=== PATIENT | female | born 1955 | race Caucasian/White ===

== ENCOUNTER 2021-03-12 11:58 | Inpatient (IN) | payer MEDICARE ==
[2021-03-12 12:47] LABS: #Basophils 0.1 thou/uL (0.0-0.2); #Lymphocytes 0.7 thou/uL (1.20-3.40); #Monocytes 0.6 thou/uL (0.11-0.59); #Neutrophils 6.8 thou/uL (1.40-6.50); %Basophils 0.7 % (0.0-1.0); %Eosinophils 0.6 % (0.0-10.0); %Monocytes 7.1 % (0.0-10.0); %Neutrophils 82.7 % (42.0-75.0); Hemoglobin 10.9 g/dL (12.0-16.0); Mean Corpuscular HGB CONC 32.2 g/dL (32.0-36.0); Mean Corpuscular Hemoglobin 25.8 pg (27.0-31.0); Mean Corpuscular Volume 80.3 fL (78.0-98.0); Mean Platelet Volume 8.5 fL (7.4-10.4); Platelet Count 278 thou/uL (130-400); Red Blood Cell (RBC) Count 4.23 mill/uL (4.20-5.40); White Blood Cell (WBC) Count 8.2 thou/uL (4.8-10.8)
[2021-03-12 13:09] LABS: ALT (SGPT) 41 U/L (8-55); AST (SGOT) 27 U/L (5-34); Albumin 4.1 g/dL (3.4-4.8); Alkaline Phosphatase 62 U/L (40-110); Anion Gap 17 mmol/L (10-20); BUN (Urea Nitrogen) 10 mg/dL (9.8-20.1); Bilirubin, Total 0.3 mg/dL (0.2-1.2); CK (CPK) 663 U/L (29-168); Calc. Creatinine Clearance 0 mL/min (70-130); Calcium 9.6 mg/dL (7.8-10.44); Carbon Dioxide 21 mmol/L (23-31); Chloride 101 mmol/L (98-107); Globulin 3.2 g/dL (2.4-3.5); Glucose 269 mg/dL (80-115); Protein, Total 7.3 g/dL (5.8-8.1); Sodium 135 mmol/L (136-145)
[2021-03-12 13:29] LABS: CKMB 3.7 ng/mL (0-6.6)
[2021-03-12] MEDS ORDERED: Aspirin Chewable 81 MG TAB ONE (14:24)
[2021-03-12 17:34] LABS: Troponin I 0.227 ng/mL (< 0.028)
[2021-03-12] MEDS ORDERED: Calcium Carbonate 500 MG ChewTAB PO PRN (18:55)
[2021-03-12] MEDS ORDERED: Ondansetron PF 4 MG/2 ML Vial IVP PRN (18:55)
[2021-03-12] MEDS ORDERED: Acetaminophen 650 MG Suppository PR PRN (18:55)
[2021-03-12] MEDS ORDERED: Ondansetron ODT 4 MG TAB PO PRN (18:55)
[2021-03-12] MEDS ORDERED: Dextrose 50% Abboject 50 ML SYRINGE SLOW IVP PRN (18:59)
[2021-03-12] MEDS ORDERED: Dextrose 5% in Water 1,000 ML IV PRN (18:59)
[2021-03-12] MEDS ORDERED: Acetaminophen 325 MG TAB ONE (19:16)
[2021-03-12 19:52] LABS: Bilirubin Negative (Negative); Blood, Urine Negative (Negative); Clarity Clear (Clear); Glucose, Urine (Dipstick) Greater than 1000 mg/dL (Negative); Ketone, Urine 20 mg/dL (Negative); Leukocyte Negative Leu/uL (Negative); Nitrite Negative (Negative); Protein, Urine (Dipstick) Negative (Neg-Trace); Specific Gravity, Urine 1.013 (1.002-1.036); Urobilinogen Normal mg/dL (Less than 2)
[2021-03-12 20:33] LABS: Troponin I 0.205 ng/mL (< 0.028)
[2021-03-12] MEDS: Lactated Ringer's 1,000 ML IV SCH (22:26)
[2021-03-13 00:54] VITALS: BMI 32.1
[2021-03-13 03:37] LABS: SARS-CoV-2 PCR by NAA Not Detected (NotDetected)
[2021-03-13 05:33] LABS: #Basophils 0.1 thou/uL (0.0-0.2); #Eosinphils 0.1 thou/uL (0.0-0.7); #Lymphocytes 1.2 thou/uL (1.20-3.40); #Monocytes 0.8 thou/uL (0.11-0.59); #Neutrophils 3.8 thou/uL (1.40-6.50); %Basophils 0.9 % (0.0-1.0); %Eosinophils 1.6 % (0.0-10.0); %Lymphocytes 20.2 % (21.0-51.0); %Monocytes 13.6 % (0.0-10.0); %Neutrophils 63.7 % (42.0-75.0); Hemoglobin 11.1 g/dL (12.0-16.0); Mean Corpuscular HGB CONC 31.2 g/dL (32.0-36.0); Mean Corpuscular Hemoglobin 25.3 pg (27.0-31.0); Mean Corpuscular Volume 81.1 fL (78.0-98.0); Mean Platelet Volume 8.7 fL (7.4-10.4); Platelet Count 265 thou/uL (130-400); RBC Distribution Width 15.2 % (11.5-14.5)
[2021-03-13 05:40] LABS: Hemoglobin A1c 8.8 % (4.0-6.0)
[2021-03-13 05:57] LABS: Anion Gap 13 mmol/L (10-20); BUN (Urea Nitrogen) 9 mg/dL (9.8-20.1); Calc. Creatinine Clearance 101 mL/min (70-130); Calcium 9.2 mg/dL (7.8-10.44); Carbon Dioxide 24 mmol/L (23-31); Cardiac Risk 5.9 (Less than 4.5); Chloride 103 mmol/L (98-107); Cholesterol 194 mg/dl (< 200 Desired); Glucose 241 mg/dL (80-115); HDL Cholesterol 33 mg/dL (>60 Neg Risk); LDL Cholesterol, Calculated 121 mg/dL; Potassium 4.5 mmol/L (3.5-5.1); Sodium 135 mmol/L (136-145); Triglycerides 200 mg/dL (Less than 150)
[2021-03-13] MEDS: Levothyroxine Sodium 100 MCG TAB PO SCH (06:04)
[2021-03-13] MEDS: Acetaminophen 325 MG TAB PO PRN (06:04)
[2021-03-13] MEDS: Lactated Ringer's 1,000 ML IV SCH ×4 (06:05→23:03)
[2021-03-13] MEDS: HumaLOG 300 UNITS/3 ML VIAL SC PRN ×4 (06:06→21:33)
[2021-03-13] MEDS ORDERED: Regadenoson 0.4 MG/5 ML SYRINGE ONE (08:46)
[2021-03-13] MEDS: metFORMIN 500 MG TAB PO SCH ×2 (08:54→15:52)
[2021-03-13] MEDS: Enoxaparin Sodium 40 MG/0.4 ML SYRINGE SC SCH (08:55)
[2021-03-13] MEDS: Ketoconazole 2% Cream 15 gm Tube TOP SCH (08:55)
[2021-03-13] MEDS: FLUoxetine HCl 10 MG CAP PO SCH (08:55)
[2021-03-13] MEDS: OLANZapine 5 MG TAB PO SCH (08:56)
[2021-03-13] MEDS ORDERED: metFORMIN XR 500 MG TAB PO SCH (09:00)
[2021-03-13 10:36] LABS: Iron 32 ug/dL (50-170); Iron Binding Capacity, Total 359 mcg/dL (265-497)
[2021-03-13 11:25] LABS: Troponin I 0.094 ng/mL (< 0.028)
[2021-03-13] MEDS: Ferrous Sulfate 325 MG TAB PO SCH (12:36)
[2021-03-13] MEDS: Rosuvastatin 20 MG TAB PO SCH (21:34)
[2021-03-14 05:47] LABS: #Eosinphils 0.2 thou/uL (0.0-0.7); #Lymphocytes 1.3 thou/uL (1.20-3.40); #Monocytes 0.6 thou/uL (0.11-0.59); #Neutrophils 3.2 thou/uL (1.40-6.50); %Basophils 0.4 % (0.0-1.0); %Eosinophils 2.9 % (0.0-10.0); %Monocytes 11.9 % (0.0-10.0); %Neutrophils 60.8 % (42.0-75.0); Hemoglobin 10.6 g/dL (12.0-16.0); Mean Corpuscular HGB CONC 30.9 g/dL (32.0-36.0); Mean Corpuscular Hemoglobin 25.2 pg (27.0-31.0); Mean Corpuscular Volume 81.6 fL (78.0-98.0); Mean Platelet Volume 8.5 fL (7.4-10.4); Platelet Count 259 thou/uL (130-400); RBC Distribution Width 15.1 % (11.5-14.5); Red Blood Cell (RBC) Count 4.21 mill/uL (4.20-5.40); White Blood Cell (WBC) Count 5.3 thou/uL (4.8-10.8)
[2021-03-14] MEDS: Levothyroxine Sodium 100 MCG TAB PO SCH (05:50)
[2021-03-14] MEDS: Lactated Ringer's 1,000 ML IV SCH ×3 (05:51→20:29)
[2021-03-14] MEDS: HumaLOG 300 UNITS/3 ML VIAL SC PRN ×4 (05:52→20:29)
[2021-03-14 06:12] LABS: Anion Gap 12 mmol/L (10-20); BUN (Urea Nitrogen) 5 mg/dL (9.8-20.1); CK (CPK) 514 U/L (29-168); Calc. Creatinine Clearance 101 mL/min (70-130); Calcium 9.1 mg/dL (7.8-10.44); Carbon Dioxide 23 mmol/L (23-31); Chloride 103 mmol/L (98-107); Glucose 209 mg/dL (80-115); Potassium 4.4 mmol/L (3.5-5.1); Sodium 134 mmol/L (136-145)
[2021-03-14] MEDS: Enoxaparin Sodium 40 MG/0.4 ML SYRINGE SC SCH (08:40)
[2021-03-14] MEDS: Ferrous Sulfate 325 MG TAB PO SCH (08:41)
[2021-03-14] MEDS: metFORMIN 500 MG TAB PO SCH ×2 (08:41→17:53)
[2021-03-14] MEDS: Ketoconazole 2% Cream 15 gm Tube TOP SCH (08:41)
[2021-03-14] MEDS: OLANZapine 5 MG TAB PO SCH (08:42)
[2021-03-14] MEDS: FLUoxetine HCl 10 MG CAP PO SCH (08:42)
[2021-03-14] MEDS ORDERED: hydrALAZINE 20 MG/ML VIAL SLOW IVP PRN (20:27)
[2021-03-14] MEDS: Acetaminophen 325 MG TAB PO PRN (20:31)
[2021-03-14] MEDS: Rosuvastatin 20 MG TAB PO SCH (20:32)
[2021-03-15] MEDS: Loratadine 10 MG TAB PO PRN (03:32)
[2021-03-15 05:29] LABS: #Eosinphils 0.1 thou/uL (0.0-0.7); #Lymphocytes 1.3 thou/uL (1.20-3.40); #Monocytes 0.6 thou/uL (0.11-0.59); #Neutrophils 3.6 thou/uL (1.40-6.50); %Basophils 0.3 % (0.0-1.0); %Eosinophils 1.3 % (0.0-10.0); %Lymphocytes 23.5 % (21.0-51.0); %Monocytes 11.3 % (0.0-10.0); %Neutrophils 63.6 % (42.0-75.0); Hemoglobin 11.2 g/dL (12.0-16.0); Mean Corpuscular HGB CONC 30.6 g/dL (32.0-36.0); Mean Corpuscular Hemoglobin 24.8 pg (27.0-31.0); Mean Corpuscular Volume 80.9 fL (78.0-98.0); Mean Platelet Volume 8.5 fL (7.4-10.4); Platelet Count 277 thou/uL (130-400); White Blood Cell (WBC) Count 5.6 thou/uL (4.8-10.8)
[2021-03-15 06:01] LABS: Anion Gap 14 mmol/L (10-20); BUN (Urea Nitrogen) 5 mg/dL (9.8-20.1); Calc. Creatinine Clearance 93 mL/min (70-130); Calcium 9.2 mg/dL (7.8-10.44); Carbon Dioxide 24 mmol/L (23-31); Chloride 100 mmol/L (98-107); Glucose 206 mg/dL (80-115); Potassium 4.1 mmol/L (3.5-5.1); Sodium 134 mmol/L (136-145)
[2021-03-15] MEDS: Levothyroxine Sodium 100 MCG TAB PO SCH (06:04)
[2021-03-15] MEDS: HumaLOG 300 UNITS/3 ML VIAL SC PRN ×4 (06:05→20:31)
[2021-03-15] MEDS: Enoxaparin Sodium 40 MG/0.4 ML SYRINGE SC SCH (10:22)
[2021-03-15] MEDS: metFORMIN 500 MG TAB PO SCH ×2 (10:23→18:17)
[2021-03-15] MEDS: OLANZapine 5 MG TAB PO SCH (10:24)
[2021-03-15] MEDS: FLUoxetine HCl 10 MG CAP PO SCH (10:24)
[2021-03-15] MEDS: Lisinopril 10 MG TAB PO SCH (10:24)
[2021-03-15] MEDS: Ferrous Sulfate 325 MG TAB PO SCH (10:26)
[2021-03-15] MEDS: Ketoconazole 2% Cream 15 gm Tube TOP SCH (10:26)
[2021-03-15] MEDS: Rosuvastatin 20 MG TAB PO SCH (20:30)
[2021-03-16] MEDS: Loratadine 10 MG TAB PO PRN ×2 (00:35→20:49)
[2021-03-16] MEDS: Melatonin 3 MG TAB PO PRN ×2 (00:35→20:49)
[2021-03-16 04:59] LABS: #Basophils 0.1 thou/uL (0.0-0.2); #Eosinphils 0.4 thou/uL (0.0-0.7); #Lymphocytes 2.3 thou/uL (1.20-3.40); #Monocytes 0.7 thou/uL (0.11-0.59); #Neutrophils 3.9 thou/uL (1.40-6.50); %Basophils 0.9 % (0.0-1.0); %Eosinophils 5.5 % (0.0-10.0); %Lymphocytes 31.4 % (21.0-51.0); %Neutrophils 52.3 % (42.0-75.0); Hemoglobin 10.7 g/dL (12.0-16.0); Mean Corpuscular HGB CONC 31.2 g/dL (32.0-36.0); Mean Corpuscular Hemoglobin 25.9 pg (27.0-31.0); Mean Corpuscular Volume 83.2 fL (78.0-98.0); Mean Platelet Volume 8.4 fL (7.4-10.4); Platelet Count 287 thou/uL (130-400); RBC Distribution Width 15.2 % (11.5-14.5); Red Blood Cell (RBC) Count 4.13 mill/uL (4.20-5.40); White Blood Cell (WBC) Count 7.5 thou/uL (4.8-10.8)
[2021-03-16 05:19] LABS: Anion Gap 16 mmol/L (10-20); BUN (Urea Nitrogen) 7 mg/dL (9.8-20.1); Calc. Creatinine Clearance 105 mL/min (70-130); Calcium 8.6 mg/dL (7.8-10.44); Carbon Dioxide 22 mmol/L (23-31); Chloride 100 mmol/L (98-107); Glucose 170 mg/dL (80-115); Potassium 4.1 mmol/L (3.5-5.1); Sodium 134 mmol/L (136-145)
[2021-03-16] MEDS: Levothyroxine Sodium 100 MCG TAB PO SCH (06:31)
[2021-03-16] MEDS: HumaLOG 300 UNITS/3 ML VIAL SC PRN ×3 (06:31→17:57)
[2021-03-16] MEDS: Enoxaparin Sodium 40 MG/0.4 ML SYRINGE SC SCH (08:22)
[2021-03-16] MEDS: FLUoxetine HCl 10 MG CAP PO SCH (08:23)
[2021-03-16] MEDS: OLANZapine 5 MG TAB PO SCH (08:23)
[2021-03-16] MEDS: metFORMIN 500 MG TAB PO SCH ×2 (08:23→17:57)
[2021-03-16] MEDS: Lisinopril 10 MG TAB PO SCH (08:24)
[2021-03-16] MEDS: Ketoconazole 2% Cream 15 gm Tube TOP SCH (08:28)
[2021-03-16] MEDS: Ferrous Sulfate 325 MG TAB PO SCH (08:29)
[2021-03-16] MEDS: Rosuvastatin 20 MG TAB PO SCH (20:49)
[2021-03-17] MEDS: Levothyroxine Sodium 100 MCG TAB PO SCH (05:25)
[2021-03-17] MEDS: Enoxaparin Sodium 40 MG/0.4 ML SYRINGE SC SCH (10:25)
[2021-03-17] MEDS: Ketoconazole 2% Cream 15 gm Tube TOP SCH (10:25)
[2021-03-17] MEDS: Lisinopril 10 MG TAB PO SCH (10:26)
[2021-03-17] MEDS: OLANZapine 5 MG TAB PO SCH (10:26)
[2021-03-17] MEDS: metFORMIN 500 MG TAB PO SCH ×2 (10:26→17:41)
[2021-03-17] MEDS: FLUoxetine HCl 10 MG CAP PO SCH (10:26)
[2021-03-17] MEDS: Ferrous Sulfate 325 MG TAB PO SCH (10:28)
[2021-03-17] MEDS: HumaLOG 300 UNITS/3 ML VIAL SC PRN ×2 (12:00→17:42)
[2021-03-17] MEDS: Rosuvastatin 20 MG TAB PO SCH (20:03)
[2021-03-17] MEDS: Melatonin 3 MG TAB PO PRN (20:03)
[2021-03-17] MEDS: Loratadine 10 MG TAB PO PRN (20:04)
[2021-03-18] MEDS: Levothyroxine Sodium 100 MCG TAB PO SCH (05:41)
[2021-03-18] MEDS: HumaLOG 300 UNITS/3 ML VIAL SC PRN ×2 (05:41→11:17)
[2021-03-18] MEDS: metFORMIN 500 MG TAB PO SCH ×2 (08:37→16:19)
[2021-03-18] MEDS: Ferrous Sulfate 325 MG TAB PO SCH (08:37)
[2021-03-18] MEDS: FLUoxetine HCl 10 MG CAP PO SCH (08:38)
[2021-03-18] MEDS: Lisinopril 10 MG TAB PO SCH (08:38)
[2021-03-18] MEDS: OLANZapine 5 MG TAB PO SCH (08:38)
[2021-03-18] MEDS: Enoxaparin Sodium 40 MG/0.4 ML SYRINGE SC SCH (08:38)
[2021-03-18] MEDS: Acetaminophen 325 MG TAB PO PRN ×2 (08:39→16:19)
[2021-03-18] MEDS: Ketoconazole 2% Cream 15 gm Tube TOP SCH (08:40)
[2021-03-18 15:31] VITALS: BP 120/57; TEMP 97.4
== END 2021-03-18 17:06 | DRG 557 ==
LOC: ERS 11:58 → 2SE 19:01 → OBSVTOIN 03-13 15:21
PROVIDERS: ADMIT Student in an Organized Health Care Education/Training Program; ATTEND Student in an Organized Health Care Education/Training Program
DX: M62.82 Rhabdomyolysis (principal); I21.A1 Myocardial infarction type 2; Z20.822 Contact with and (suspected) exposure to COVID-19; F31.9 Bipolar disorder, unspecified; I10 Essential (primary) hypertension; E11.9 Type 2 diabetes mellitus without complications; G89.4 Chronic pain syndrome; R53.82 Chronic fatigue, unspecified; E03.9 Hypothyroidism, unspecified; D64.9 Anemia, unspecified; F41.9 Anxiety disorder, unspecified; G47.00 Insomnia, unspecified; G43.909 Migraine, unspecified, not intractable, without status migrainosus; E78.5 Hyperlipidemia, unspecified; E28.2 Polycystic ovarian syndrome; Z88.0 Allergy status to penicillin; Z90.710 Acquired absence of both cervix and uterus; Z91.018 Allergy to other foods; Z91.048 Other nonmedicinal substance allergy status; Z79.890 Hormone replacement therapy; Z88.5 Allergy status to narcotic agent; Z88.8 Allergy status to other drugs, medicaments and biological substances; Z88.1 Allergy status to other antibiotic agents
CPT/HCPCS: 36415; 36416; 70450; 71046; 78452; 80048; 80053; 80061; 80164; 81003; 82550; 82553; 82728; 83036; 83540; 83550; 83880; 84439; 84443; 84484; 85025; 87635; 93005; 93017; 93306; 96372; A9500; G0378; J0360; J1650; J1815; J2785; U0003; U0005

== ENCOUNTER 2021-11-05 15:37 | Inpatient (IN) | payer MEDICARE ==
[2021-11-05 16:18] LABS: #Eosinphils 0.2 thou/uL (0.0-0.7); #Lymphocytes 1.8 thou/uL (1.20-3.40); #Monocytes 0.4 thou/uL (0.11-0.59); #Neutrophils 3.5 thou/uL (1.40-6.50); %Basophils 0.8 % (0.0-1.0); %Eosinophils 3.7 % (0.0-10.0); %Lymphocytes 29.3 % (21.0-51.0); %Monocytes 7.4 % (0.0-10.0); %Neutrophils 58.8 % (42.0-75.0); Hemoglobin 11.5 g/dL (12.0-16.0); Mean Corpuscular HGB CONC 32.5 g/dL (32.0-36.0); Mean Corpuscular Hemoglobin 27.1 pg (27.0-31.0); Mean Corpuscular Volume 83.5 fL (78.0-98.0); Mean Platelet Volume 8.7 fL (7.4-10.4); Platelet Count 257 thou/uL (130-400); RBC Distribution Width 17.3 % (11.5-14.5); Red Blood Cell (RBC) Count 4.22 mill/uL (4.20-5.40)
[2021-11-05 16:38] LABS: ALT (SGPT) 32 U/L (8-55); AST (SGOT) 22 U/L (5-34); Acetaminophen Less than 6.0 mcg/mL (10.0-30.0); Albumin 3.9 g/dL (3.4-4.8); Alcohol Less than 10 mg/dL (Less than 10); Alkaline Phosphatase 61 U/L (40-110); Anion Gap 20 mmol/L (10-20); BUN (Urea Nitrogen) 12 mg/dL (9.8-20.1); Bilirubin, Total 0.2 mg/dL (0.2-1.2); CK (CPK) 88 U/L (29-168); Calc. Creatinine Clearance 0 mL/min (70-130); Calcium 9.3 mg/dL (7.8-10.44); Carbon Dioxide 21 mmol/L (23-31); Chloride 98 mmol/L (98-107); Globulin 2.9 g/dL (2.4-3.5); Glucose 239 mg/dL (80-115); Lipase 46 U/L (8-78); Magnesium 1.7 mg/dL (1.6-2.6); Potassium 4.9 mmol/L (3.5-5.1); Protein, Total 6.8 g/dL (5.8-8.1); Salicylate Less than 8.0 mg/dL (15.0-30.0); Sodium 134 mmol/L (136-145)
[2021-11-05 16:52] LABS: Actual Bicarbonate (HCO3v) 21 mEq/L (22-28); Analyzer IN Cardio ER; Calcium, Ionized (venous) 1.05 mmol/L (1.16-1.32); Chloride (VBG) 100 mmol/L (98-106); Hemoglobin (Hb) 11.2 g/dL (11.7-16.1); Potassium (VBG) 4.61 mmol/L (3.70-5.30); Sodium 132.4 mmol/L (133-146); pH (venous) 7.36 (7.32-7.43)
[2021-11-05 17:30] LABS: Bacteria/HPF 2+ HPF (None Seen); Bilirubin Negative (Negative); Blood, Urine Negative (Negative); Clarity Turbid (Clear); Glucose, Urine (Dipstick) Greater than 1000 mg/dL (Negative); Ketone, Urine 20 mg/dL (Negative); Leukocyte 500 Leu/uL (Negative); Mucous/LPF Rare LPF (<2+); Nitrite Negative (Negative); Protein, Urine (Dipstick) 100 mg/dL (Neg-Trace); Specific Gravity, Urine 1.039 (1.002-1.036); Squamous Epithelial 0-3 HPF (0-3); WBC/HPF Greater than 50 HPF (0-3); pH, Urine 5.5 (5.0-9.0)
[2021-11-05 17:35] LABS: Amphetamine Not Detected (NotDetected); Barbiturates Screen Not Detected (NotDetected); Benzodiazepine Screen Not Detected (NotDetected); Cocaine Metabolite Screen Not Detected (NotDetected); Methadone Not Detected (NotDetected); Methamphetamine Not Detected (NotDetected); Opiate Screen Not Detected (NotDetected); Oxycodone Screen Not Detected (NotDetected); Phencyclidine (PCP) Not Detected (NotDetected); THC/Cannabinoid Screen Not Detected (NotDetected); Tricyclic Screen Not Detected (NotDetected)
[2021-11-05 17:36] LABS: RBC/HPF 0-3 HPF (0-3); Yeast-Budding 2+ HPF (None Seen); Yeast-Hyphae 1+ HPF (None Seen)
[2021-11-05 18:04] LABS: SARS-CoV-2 NAA Rapid Test Not Detected (NotDetected)
[2021-11-05] MEDS ORDERED: cefTRIAXone\\ROCEPHIN 2 GM VIAL ONE (18:18)
[2021-11-05] MEDS ORDERED: Vancomycin 1 GM/200 ML BAG ONE (18:58)
[2021-11-05 20:03] LABS: Lactic Acid 3.3 mmol/L (0.5-2.2)
[2021-11-05] MEDS ORDERED: Ondansetron ODT 4 MG TAB PO PRN (21:14)
[2021-11-05] MEDS ORDERED: Ondansetron PF 4 MG/2 ML Vial IVP PRN (21:14)
[2021-11-05] MEDS ORDERED: Dextrose 5% in Water 1,000 ML IV PRN (21:14)
[2021-11-05] MEDS ORDERED: Dextrose 50% Abboject 50 ML SYRINGE SLOW IVP PRN (21:14)
[2021-11-05] MEDS ORDERED: Acetaminophen 325 MG TAB PO PRN (21:14)
[2021-11-05] MEDS ORDERED: HumaLOG 300 UNITS/3 ML VIAL SC PRN (21:14)
[2021-11-05] MEDS ORDERED: Acetaminophen 650 MG Suppository PR PRN (21:14)
[2021-11-05 22:21] VITALS: BMI 31.8
[2021-11-06 04:35] LABS: #Basophils 0.1 thou/uL (0.0-0.2); #Eosinphils 0.3 thou/uL (0.0-0.7); #Lymphocytes 1.8 thou/uL (1.20-3.40); #Monocytes 0.5 thou/uL (0.11-0.59); #Neutrophils 3.9 thou/uL (1.40-6.50); %Basophils 0.8 % (0.0-1.0); %Lymphocytes 27.3 % (21.0-51.0); %Monocytes 7.8 % (0.0-10.0); %Neutrophils 60.1 % (42.0-75.0); Hemoglobin 10.2 g/dL (12.0-16.0); Mean Corpuscular HGB CONC 32.9 g/dL (32.0-36.0); Mean Corpuscular Hemoglobin 27.3 pg (27.0-31.0); Mean Corpuscular Volume 82.9 fL (78.0-98.0); Mean Platelet Volume 8.9 fL (7.4-10.4); Platelet Count 242 thou/uL (130-400); RBC Distribution Width 17.2 % (11.5-14.5); Red Blood Cell (RBC) Count 3.74 mill/uL (4.20-5.40); White Blood Cell (WBC) Count 6.5 thou/uL (4.8-10.8)
[2021-11-06 04:41] LABS: Lactic Acid 2.4 mmol/L (0.5-2.2)
[2021-11-06 04:44] LABS: Anion Gap 13 mmol/L (10-20); BUN (Urea Nitrogen) 10 mg/dL (9.8-20.1); Calc. Creatinine Clearance 95 mL/min (70-130); Carbon Dioxide 25 mmol/L (23-31); Chloride 103 mmol/L (98-107); Glucose 309 mg/dL (80-115); Potassium 4.3 mmol/L (3.5-5.1); Sodium 137 mmol/L (136-145)
[2021-11-06] MEDS ORDERED: Vancomycin 1.5 GRAM/300 ML BAG 1.5 GM in Premix Bag 1 BAG IVPB SCH (06:00)
[2021-11-06] MEDS: HumaLOG 300 UNITS/3 ML VIAL SC PRN ×3 (06:07→17:26)
[2021-11-06] MEDS: Sodium Chloride 0.9% 1,000 ML IV SCH ×2 (06:07→14:54)
[2021-11-06] MEDS: VANCOMYCIN 1.25 GM/250 ML BAG 1.25 GM in Premix Bag 1 BAG IVPB SCH (08:45)
[2021-11-06] MEDS: Enoxaparin Sodium 40 MG/0.4 ML SYRINGE SC SCH (08:46)
[2021-11-06] MEDS ORDERED: Calcium Carbonate 500 MG ChewTAB PO PRN (14:22)
[2021-11-06] MEDS ORDERED: Melatonin 3 MG TAB PO PRN (14:22)
[2021-11-06] MEDS ORDERED: Loratadine 10 MG TAB PO PRN (14:22)
[2021-11-06] MEDS ORDERED: Acetaminophen 325 MG TAB PO PRN (14:22)
[2021-11-06] MEDS: metFORMIN 500 MG TAB PO SCH (17:25)
[2021-11-06] MEDS ORDERED: cefTRIAXone\\ROCEPHIN 1 GM in Sodium Chloride 0.9% 100 ML IVPB SCH (18:00)
[2021-11-06] MEDS ORDERED: Rosuvastatin 20 MG TAB PO SCH (21:00)
[2021-11-06] MEDS ORDERED: OLANZapine 5 MG TAB PO SCH (22:15)
[2021-11-06] MEDS ORDERED: Gabapentin 300 MG CAP PO SCH (22:15)
[2021-11-07] MEDS: Sodium Chloride 0.9% 1,000 ML IV SCH ×2 (04:23→09:16)
[2021-11-07] MEDS ORDERED: Levothyroxine Sodium 100 MCG TAB PO SCH (06:00)
[2021-11-07] MEDS ORDERED: Ferrous Sulfate 325 MG TAB PO SCH (08:00)
[2021-11-07] MEDS ORDERED: Gabapentin 300 MG CAP PO SCH (09:00)
[2021-11-07] MEDS ORDERED: OLANZapine 5 MG TAB PO SCH ×2 (09:00→21:00)
[2021-11-07] MEDS ORDERED: Lisinopril 10 MG TAB PO SCH (09:00)
[2021-11-07] MEDS ORDERED: FLUoxetine HCl 10 MG CAP PO SCH (09:00)
[2021-11-07] MEDS: metFORMIN 500 MG TAB PO SCH (09:17)
[2021-11-07] MEDS: Enoxaparin Sodium 40 MG/0.4 ML SYRINGE SC SCH (09:17)
[2021-11-07] MEDS: VANCOMYCIN 1.25 GM/250 ML BAG 1.25 GM in Premix Bag 1 BAG IVPB SCH (09:19)
[2021-11-07] MEDS ORDERED: Nitrofurantoin Monohyd/M-Cryst 100 MG CAP PO SCH (10:06)
[2021-11-07 11:18] VITALS: TEMP 97.4
[2021-11-07 13:14] VITALS: BP 109/53
== END 2021-11-07 15:29 | disposition home or self-care (01) | DRG 690 ==
LOC: ERS 15:37 → 2NO 19:41
PROVIDERS: ADMIT Student in an Organized Health Care Education/Training Program; ATTEND Internal Medicine
DX: N30.00 Acute cystitis without hematuria (principal); Z20.822 Contact with and (suspected) exposure to COVID-19; E87.1 Hypo-osmolality and hyponatremia; E87.2 Acidosis; E11.9 Type 2 diabetes mellitus without complications; I10 Essential (primary) hypertension; D64.9 Anemia, unspecified; E78.5 Hyperlipidemia, unspecified; E03.9 Hypothyroidism, unspecified; E28.2 Polycystic ovarian syndrome; I95.89 Other hypotension; F31.9 Bipolar disorder, unspecified; K21.9 Gastro-esophageal reflux disease without esophagitis; F41.9 Anxiety disorder, unspecified; Z90.710 Acquired absence of both cervix and uterus; Z88.0 Allergy status to penicillin; Z91.018 Allergy to other foods; Z91.09 Other allergy status, other than to drugs and biological substances; Z79.899 Other long term (current) drug therapy; Z79.890 Hormone replacement therapy; Z79.84 Long term (current) use of oral hypoglycemic drugs
CPT/HCPCS: 0240U; 36415; 36416; 71045; 80048; 80053; 80306; 80307; 81003; 81015; 82550; 82805; 83605; 83690; 83735; 83880; 84484; 85025; 87040; 87086; 93005; J0696; J1650; J1815; J3370; J3490; J7050